=== PATIENT | male | born 1995 | race Caucasian/White ===

== ENCOUNTER 2021-06-11 09:59 | Emergency (ER) | payer OTHER ==
[~2021-06-11] VITALS: Ht 175.3 cm; Wt 77.1 kg
[~2021-06-11 09:59] MED LIST: Amoxicillin500 MG PO; CODACE30 PO; HYDACE5 PO; KETO10 PO; Norco 5-325 Ta1 EACH PO; OMEP10ER PO; ORAL ANALGESIC9 GM MM; PROM25 PO; RXCODACET PO
== END 2021-06-11 12:14 | disposition home or self-care (01) ==
LOC: ER 09:59
DX: S92.351A Displaced fracture of fifth metatarsal bone, right foot, initial encounter for closed fracture (principal); X58.XXXA Exposure to other specified factors, initial encounter
CPT/HCPCS: 29515; 73630; 99283-25